=== PATIENT | female | born 1950 | race Asian ===

== ENCOUNTER 2017-01-15 09:09 | Outpatient (CLI) | payer OTHER ==
--- NOTE | 2017-01-15 12:40 | ULT ---
THYROID ULTRASOUND: COMPARISON: 06/16/16 and 09/18/16. TECHNIQUE: Sagittal and transverse imaging of the thyroid gland is performed. FINDINGS: Redemonstration of a solid accessory mass in the right thyroid lobe, measuring 1.3 x 1.0 x 1.2 cm (p reviously measuring 1.0 x 1.3 x 0.8 cm). This nodule has undergone fine needle aspiration. Refer t o pathology report for further detail. There is a predominantly solid nodule with a peripheral cystic component in the junction of the left thyroid lobe and thyroid isthmus measuring 1.1 x 0.7 x 0.9 cm. Previously, this nodule measured 0. 9 x 0.5 x 1.0 cm. When compared to the prior examination, no significant change. IMPRESSION: 1. Recent fine needle aspiration of a right thyroid lobe nodule. 2. Stable left thyroid lobe nodule. The nodule is predominantly solid with a peripheral cystic com ponent. POS: [facility]
== END 2017-01-15 09:10 | disposition home or self-care (01) ==
LOC: ULT 09:09
PROVIDERS: ATTEND Family Medicine
DX: E04.1 Nontoxic single thyroid nodule (principal); E04.2 Nontoxic multinodular goiter
CPT/HCPCS: 76536

== ENCOUNTER 2017-09-15 08:21 | Outpatient (CLI) | payer OTHER ==
--- NOTE | 2017-09-15 15:40 | MMO ---
BILATERAL SCREENING MAMMOGRAM: Date: 09/15/17 COMPARISON: 05/23/13. HISTORY: Annual screening exam. This patient's mammogram was interpreted with the assistance of computer-aided detection. FINDINGS: For this study, due to patient discomfort, we could not obtain pushback views and so this exam is nelson ited. Bilateral implants are normal. Some minimal peripheral calcification noted to the implants. Sca ttered fibroglandular changes of the breast tissue. I do not appreciate any mass. Limited evaluation is possible given the difficulty in obtaining displaced views. These appear to represent prepectoral implants. IMPRESSION: BIRADS 2: Benign Finding(s) POS: [facility]
== END 2017-09-15 08:22 | disposition home or self-care (01) ==
LOC: SCSMAMMO 08:21
PROVIDERS: ATTEND Family Medicine
DX: Z12.31 Encounter for screening mammogram for malignant neoplasm of breast (principal)
CPT/HCPCS: 77067

== ENCOUNTER 2018-02-04 08:45 | Outpatient (CLI) | payer OTHER ==
--- NOTE | 2018-02-04 12:45 | ULT ---
THYROID ULTRASOUND: Comparison: 01-15-17 History: Thyroid nodules. Technique: Multiplanar grayscale and color doppler images were obtained in a thyroid ultrasound. FINDINGS: There are two nodules in the thyroid gland. The largest nodule on the right measures 1.[address] dimension. The largest nodule in the left near the isthmus measures 1.2 cm in greatest dimension. These nodules are well circumscribed without suspicious calcifications. The nodule on the right is hy perechoic and the nodule on the left is mixed solid/cystic. The thyroid lobes measure 4.6 and 3.6 in length on the right and left respectively. IMPRESSION: Stable thyroid nodules. These nodules are TIRADS category III lesions and are less than 1.5 cm in siz e. No follow up these lesions is necessary per recent recommendations. POS: [facility]
== END 2018-02-04 08:46 | disposition home or self-care (01) ==
LOC: BICULT 08:45
PROVIDERS: ATTEND Family Medicine
DX: E04.1 Nontoxic single thyroid nodule (principal); E04.2 Nontoxic multinodular goiter; E07.9 Disorder of thyroid, unspecified
CPT/HCPCS: 76536